=== PATIENT | female | born 1955 | race Caucasian/White ===

== ENCOUNTER 2023-08-30 06:22 | Day surgery (SDC) | payer MEDICARE, SELFPAY ==
[2023-08-25 12:55] VITALS: BMI 28.5
[2023-08-25 15:37] VITALS: BMI 27.3
[2023-08-26 08:21] VITALS: BMI 28.5
--- NOTE | 2023-08-27 08:12 | MHC.SHP ---
Pre-Procedural Eval Section A Date of Service: 08/27/23 The patient is an INPATIENT: No Changes since office visit: No Cold of Flu in the past 2 weeks, No New Medical Problems, No Changes in Medication and No Patient answered all questions The History & Physical has been completed within 30 days and I have reviewed it.: Yes Section B Chief Complaint: Age-related nuclear cataract, left eye Allergies: Allergies Allergy/AdvReac Type Severity Reaction Status Date / Time No Known Allergies Allergy Verified 08/25/23 12:55 Plan Diagnosis/Plan: Unchanged I have reviewed the history and physical and performed a pertinent physical examination on my patient. No changes have occurred unless specified. Time Spent With Patient Time: Total time managing care of this patient today ____ minutes.
--- NOTE | 2023-08-27 08:47 | HO.ANESPROP2 ---
Documented by User: Cecilia Mccarthy NP 08/27/23 08:47 HPI - Anesthesia Eval Consult details Narrative: 68yo F fcr Left Cataract Extraction IOL Insertion Medically cleared No previous cataract on record PMFSH Past Medical History Medical History Elevated cholesterol Surgical History Surgical History (Updated 08/30/23 @ 08:02 by Elizabeth Foster MD) History of mandibular surgery S/P LASIK surgery Hx of appendectomy History of H/O colonoscopy Social History Social History Are you a primary career placement specialist to a significant other at home: No Do you presently have visiting nurse or other home services: No Patient Tobacco Use Status: Never used Tobacco Use of substances other than those prescribed or required for medical reasons: No Have you been hit, kicked, punched, or otherwise hurt by someone within the past year? If so, by whom?: No Are you DNR?: No Advance Directives: No Advance Directives Information Provided: Yes ( is primary contact) Advance Directives on File: No Recently lost weight without trying: No Nutrition Risks: No Nutritional Risk Poor oral hygiene: No (dental implant) Meds Allergies Allergy/AdvReac Type Severity Reaction Status Date / Time No Known Allergies Allergy Verified 08/30/23 06:51 Home Medications Medication Instructions Recorded Confirmed Last Taken Type atorvastatin 40 mg tablet 40 mg PO QAM 08/25/23 08/30/23 Unknown History coenzyme Q10 100 mg capsule (Co 100 mg PO DAILY 08/25/23 08/30/23 Unknown History Q-10) lactobacillus comb no.10 20 20,000 mmu cells PO DAILY 08/25/23 08/30/23 Unknown History billion cell capsule (Probiotic) red yeast rice 600 mg capsule 1,200 mg PO DAILY 08/25/23 08/30/23 Unknown History turmeric root extract 500 mg tablet 1,000 mg PO DAILY 08/25/23 08/30/23 Unknown History Exam Height,Weight and Vital Signs: Height 4 ft 11 in Weight 64 kg Assessment and Plan Assessment Anesthesia Assessment: Chart Reviewed Documented by User: Elizabeth Foster MD 08/30/23 08:02 [facility] Past Medical History Medical History Elevated cholesterol Family History Family history of problems with anesthesia: No Surgical History Surgical History (Updated 08/30/23 @ 08:02 by Elizabeth Foster MD) History of mandibular surgery S/P LASIK surgery Hx of appendectomy History of H/O colonoscopy History of Problems with Anesthesia: No Social History Social History Are you a primary career placement specialist to a significant other at home: No Do you presently have visiting nurse or other home services: No Patient Tobacco Use Status: Never used Tobacco Use of substances other than those prescribed or required for medical reasons: No Have you been hit, kicked, punched, or otherwise hurt by someone within the past year? If so, by whom?: No Are you DNR?: No Advance Directives: No Advance Directives Information Provided: Yes ( is primary contact) Advance Directives on File: No Recently lost weight without trying: No Nutrition Risks: No Nutritional Risk Poor oral hygiene: No (dental implant) Meds Allergies Allergy/AdvReac Type Severity Reaction Status Date / Time No Known Allergies Allergy Verified 08/30/23 06:51 Home Medications Medication Instructions Recorded Confirmed Last Taken Type atorvastatin 40 mg tablet 40 mg PO QAM 08/25/23 08/30/23 Unknown History coenzyme Q10 100 mg capsule (Co 100 mg PO DAILY 08/25/23 08/30/23 Unknown History Q-10) lactobacillus comb no.10 20 20,000 mmu cells PO DAILY 08/25/23 08/30/23 Unknown History billion cell capsule (Probiotic) red yeast rice 600 mg capsule 1,200 mg PO DAILY 08/25/23 08/30/23 Unknown History turmeric root extract 500 mg tablet 1,000 mg PO DAILY 08/25/23 08/30/23 Unknown History Exam Height,Weight and Vital Signs: Height 4 ft 11 in Weight 64 kg Vital Signs Temp Pulse Resp BP Pulse Ox O2 Del Method 08/30/23 07:05 97.6 F 69 16 147/81 H 98 Room Air Airway Mallampati Class: II TM Dist: >3cm Neck ROM: Full Loose/Missing/Broken Teeth: No (Denies broken or loose teeth) Heart: RRR Lungs: CTAB Assessment and Plan Assessment Anesthesia Assessment: Anesthesia Plan Discussed Final Anesthetic Review Family History of Problems with Anesthesia: No History of Problems with Anesthesia: No NPO: Yes ASA Class: II Final Preanesthetic Review: No Changes in Pt Med Stat, Meds/Allgs Chart Reviewed, Consent Obtained/Reviewed and Anes Risks/Benef Reviewed Patient Risk: Low Procedure Risk: Low Assessment/Block/Sedation in SS: Assess/Block/Sedation-SS Anesthetic Plan Anesthetic Plan: MAC: Disposition: Standard PACU
[2023-08-30 06:52] VITALS: BMI 28.2
[2023-08-30 07:05] VITALS: BP 147/81; PULSE 69; RESP 16; TEMP 36.4; O2SAT 98
[2023-08-30] MEDS: Tetracaine HCl/PF 0.5% Oph Sol 4 ML DROPS 1 DROP EYE-LEFT (07:09)
[2023-08-30] MEDS: Cyclopentolate 1 % Ophth Sol 2 ML DRPBTL 1 DROP EYE-LEFT ×3 (07:10→07:26)
[2023-08-30] MEDS: Tropicamide 1 % Ophth Sol 3 ML BTL 1 DROP EYE-LEFT ×3 (07:12→07:28)
[2023-08-30] MEDS: Ketorolac Tromethamine 0.5% Op 5 ML DROPS 1 DROP EYE-LEFT ×3 (07:14→07:30)
[2023-08-30] MEDS: Phenylephrine HCL 2.5% Oph SoL 2 ML BOTTLE 1 DROP EYE-LEFT ×3 (07:16→07:32)
[2023-08-30] MEDS: Lactated Ringers 500 ML 50 ML IV (07:18)
--- NOTE | 2023-08-30 08:21 | HO.PNOPHT ---
Ophthalmology Procedure Procedure Date of Service: 08/30/23 Ophthalmology Viscoelastic: Healon Duet Dual Pack Pro Ophthalmology Lenses: TECNIS ZXR00 (21.5) Procedure Notes: PREOPERATIVE DIAGNOSIS: Decreased visual acuity left eye secondary to cataract POSTOPERATIVE DIAGNOSIS: Same PROCEDURE: Left cataract extraction with multifocal intraocular lens insertion SURGEON: Javi Foster M.D. ANESTHESIA: Topical/MAC ESTIMATED BLOOD LOSS: None COMPLICATIONS: None After obtaining informed consent, the patient was brought to the operation room suite and placed in the supine position. After adequate sedation per anesthesia, topical drops of Tetracaine were given to the left eye. The eye was then prepped and draped in the usual sterile fashion. The operating room microscope was then positioned over the operative eye and a lid speculum placed. A paracentesis was created. Viscoelastic was then instilled into the anterior chamber. A three plane incision was then created temporally, utilizing a 2.85 mm keratome. Capsulotomy forceps were then utilized to create a circular tear capsulotomy. Hydrodissection and hydrodelineation were carried out until adequate mobilization of the nucleus occurred. Phacoemulsification was then utilized to remove the dense central nucleus followed by removal of the cortical material utilizing the automated aspiration irrigation unit. Viscoelastic was instilled into the posterior capsular bag followed by placement of a multifocal posterior chamber intraocular lens without difficulty. The residual Viscoelastic was then removed utilizing the automated IA machine. The wound was check and found to be watertight. The patient tolerated the procedure well and the lid speculum was removed. Intracameral injection of Vigamox 0.1 mL followed by a subtenon injection of Kenalog-40 0.2 mL were administered. The patient will be seen in the a.m.
[2023-08-30 08:47] VITALS: BP 137/62; PULSE 58; RESP 16; TEMP 36.3; O2SAT 99
== END 2023-08-30 09:00 | disposition home or self-care (01) ==
PROVIDERS: PCP Internal Medicine; Visit Provider Ophthalmology
PROC: (CPT 66984; principal; 2023-08-30 08:20)
DX: H25.12 Age-related nuclear cataract, left eye (principal); H54.7 Unspecified visual loss; Z83.511 Family history of glaucoma; H11.153 Pinguecula, bilateral; H43.393 Other vitreous opacities, bilateral; H17.9 Unspecified corneal scar and opacity; E78.00 Pure hypercholesterolemia, unspecified; Z79.899 Other long term (current) drug therapy; Z98.890 Other specified postprocedural states
CPT/HCPCS: 66984; J2250; J3010; J3301; V2788

== ENCOUNTER 2023-09-13 07:07 | Day surgery (SDC) | payer MEDICARE, SELFPAY ==
[2023-08-25 15:39] VITALS: BMI 784.3
[2023-08-26 08:21] VITALS: BMI 28.5
--- NOTE | 2023-09-10 07:44 | MHC.SHP ---
Pre-Procedural Eval Section A Date of Service: 09/10/23 The patient is an INPATIENT: No Changes since office visit: No Cold of Flu in the past 2 weeks, No New Medical Problems, No Changes in Medication and No Patient answered all questions The History & Physical has been completed within 30 days and I have reviewed it.: Yes Section B Chief Complaint: Age-related nuclear cataract, right eye Allergies: Allergies Allergy/AdvReac Type Severity Reaction Status Date / Time No Known Allergies Allergy Verified 08/30/23 06:51 Plan Diagnosis/Plan: Unchanged I have reviewed the history and physical and performed a pertinent physical examination on my patient. No changes have occurred unless specified. Time Spent With Patient Time: Total time managing care of this patient today ____ minutes.
--- NOTE | 2023-09-10 09:43 | P.CONAN_ITS ---
Documented by User: Cecilia Mccarthy NP 09/10/23 09:44 HPI - Anesthesia Eval Consult details Narrative: 68yo F for Right Cataract Extraction IOL Insertion Medically cleared s/p Left eye 08/30/23: Fent 48, Midaz 1 PMFSH Past Medical History Medical History Hx of cataract Elevated cholesterol Family History Family history of problems with anesthesia: No Surgical History Surgical History Hx of cataract removal with insertion of prosthetic lens History of mandibular surgery S/P LASIK surgery Hx of appendectomy History of H/O colonoscopy History of Problems with Anesthesia: No Social History Social History Are you a primary critical care paramedic to a significant other at home: No Do you presently have visiting nurse or other home services: No Patient Tobacco Use Status: Never used Tobacco Use of substances other than those prescribed or required for medical reasons: No Have you been hit, kicked, punched, or otherwise hurt by someone within the past year? If so, by whom?: No Are you DNR?: No Advance Directives: No Advance Directives Information Provided: Yes ( is primary contact) Advance Directives on File: No Recently lost weight without trying: No Eating poorly because of decreased appetite: No Nutrition Risks: No Nutritional Risk Poor oral hygiene: No (dental implant) Meds Allergies Allergy/AdvReac Type Severity Reaction Status Date / Time No Known Allergies Allergy Verified 09/13/23 07:20 Home Medications Medication Instructions Recorded Confirmed Last Taken Type atorvastatin 40 mg tablet 40 mg PO QAM 08/25/23 08/30/23 Unknown History coenzyme Q10 100 mg capsule (Co 100 mg PO DAILY 08/25/23 08/30/23 Unknown History Q-10) lactobacillus comb no.10 20 20,000 mmu cells PO DAILY 08/25/23 08/30/23 Unknown History billion cell capsule (Probiotic) red yeast rice 600 mg capsule 1,200 mg PO DAILY 08/25/23 08/30/23 Unknown History turmeric root extract 500 mg tablet 1,000 mg PO DAILY 08/25/23 08/30/23 Unknown History Exam Height,Weight and Vital Signs: Height 4 ft 11 in Weight 64 kg Assessment and Plan Assessment Anesthesia Assessment: Chart Reviewed Final Anesthetic Review Family History of Problems with Anesthesia: No History of Problems with Anesthesia: No Documented by User: Elizabeth Foster MD 09/13/23 08:19 PMFSH Past Medical History Medical History Hx of cataract Elevated cholesterol Surgical History Surgical History Hx of cataract removal with insertion of prosthetic lens History of mandibular surgery S/P LASIK surgery Hx of appendectomy History of H/O colonoscopy Social History Social History Are you a primary critical care paramedic to a significant other at home: No Do you presently have visiting nurse or other home services: No Patient Tobacco Use Status: Never used Tobacco Use of substances other than those prescribed or required for medical reasons: No Have you been hit, kicked, punched, or otherwise hurt by someone within the past year? If so, by whom?: No Are you DNR?: No Advance Directives: No Advance Directives Information Provided: Yes ( is primary contact) Advance Directives on File: No Recently lost weight without trying: No Eating poorly because of decreased appetite: No Nutrition Risks: No Nutritional Risk Poor oral hygiene: No (dental implant) Meds Allergies Allergy/AdvReac Type Severity Reaction Status Date / Time No Known Allergies Allergy Verified 09/13/23 07:20 Home Medications Medication Instructions Recorded Confirmed Last Taken Type atorvastatin 40 mg tablet 40 mg PO QAM 08/25/23 08/30/23 Unknown History coenzyme Q10 100 mg capsule (Co 100 mg PO DAILY 08/25/23 08/30/23 Unknown History Q-10) lactobacillus comb no.10 20 20,000 mmu cells PO DAILY 08/25/23 08/30/23 Unknown History billion cell capsule (Probiotic) red yeast rice 600 mg capsule 1,200 mg PO DAILY 08/25/23 08/30/23 Unknown History turmeric root extract 500 mg tablet 1,000 mg PO DAILY 08/25/23 08/30/23 Unknown History Exam Height,Weight and Vital Signs: Height 4 ft 11 in Weight 64 kg Vital Signs Temp Pulse Resp BP Pulse Ox O2 Del Method 09/13/23 07:56 97.9 F 63 18 146/79 H 97 Room Air Airway Mallampati Class: II TM Dist: >3cm Neck ROM: Full Loose/Missing/Broken Teeth: No (Denies broken, loose, missing teeth) Heart: RRR Lungs: CTAB Assessment and Plan Assessment Anesthesia Assessment: Anesthesia Plan Discussed Final Anesthetic Review NPO: Yes ASA Class: II Final Preanesthetic Review: No Changes in Pt Med Stat, Meds/Allgs Chart Reviewed, Consent Obtained/Reviewed and Anes Risks/Benef Reviewed Patient Risk: Low Procedure Risk: Low Assessment/Block/Sedation in SS: Assess/Block/Sedation-SS Anesthetic Plan Anesthetic Plan: MAC: Disposition: Standard PACU
[2023-09-13] MEDS: Ketorolac Tromethamine 0.5% Op 5 ML DROPS 1 DROP EYE-RIGHT ×3 (07:43→07:53)
[2023-09-13] MEDS: Tetracaine HCl/PF 0.5% Oph Sol 4 ML DROPS 1 DROP EYE-RIGHT (07:43)
[2023-09-13] MEDS: Lactated Ringers 500 ML 50 ML IV (07:43)
[2023-09-13] MEDS: Phenylephrine HCL 2.5% Oph SoL 2 ML BOTTLE 1 DROP EYE-RIGHT ×3 (07:43→07:53)
[2023-09-13] MEDS: Tropicamide 1 % Ophth Sol 3 ML BTL 1 DROP EYE-RIGHT ×3 (07:44→07:53)
[2023-09-13] MEDS: Cyclopentolate 1 % Ophth Sol 2 ML DRPBTL 1 DROP EYE-RIGHT ×3 (07:44→07:53)
[2023-09-13 07:56] VITALS: BP 146/79; PULSE 63; RESP 18; TEMP 36.6; O2SAT 97
--- NOTE | 2023-09-13 08:46 | P.PCNO_ITS ---
Ophthalmology Procedure Procedure Date of Service: 09/13/23 Ophthalmology Viscoelastic: Healon Duet Dual Pack Pro Ophthalmology Lenses: TECNIS ZXR00 (21.) Procedure Notes: PREOPERATIVE DIAGNOSIS: Decreased visual acuity right eye secondary to cataract POSTOPERATIVE DIAGNOSIS: Same PROCEDURE: Right cataract extraction with multifocal intraocular lens insertion SURGEON: Javi Foster M.D. ANESTHESIA: Topical/MAC ESTIMATED BLOOD LOSS: None COMPLICATIONS: None After obtaining informed consent, the patient was brought to the operating room suite and placed in the supine position. After adequate sedation per anesthesia, topical drops of Tetracaine were given to the right eye. The eye was then prepped and draped in the usual sterile fashion. The operating room microscope was then positioned over the operative eye and a lid speculum placed. A paracentesis was created. Viscoelastic was then instilled into the anterior chamber. A three plane incision was then created temporally, utilizing a 2.85 mm keratome. Capsulotomy forceps were then utilized to create a circular tear capsulotomy. Hydrodissection and hydrodelineation were carried out until adequate mobilization of the nucleus occurred. Phacoemulsification was then utilized to remove the dense central nuc leus followed by removal of the cortical material utilizing the automated aspiration irrigation unit. Viscoelastic was instilled into the posterior capsular bag followed by placement of a multifocal posterior chamber intraocular lens without difficulty. The residual Viscoelastic was then removed utilizing the automated IA machine. The wound was checked and found to be watertight. The patient tolerated the procedure well and the lid speculum was removed. Intracameral injection of Vigamox 0.1 mL followed by a subtenon injection of Kenalog-40 0.2 mL were administered. The patient will be seen in the a.m.
[2023-09-13 09:26] VITALS: BP 122/65; PULSE 62; RESP 18; TEMP 36.1; O2SAT 97
== END 2023-09-13 09:28 | disposition home or self-care (01) ==
PROVIDERS: PCP Internal Medicine; Visit Provider Ophthalmology
PROC: (CPT 66984; principal; 2023-09-13 09:10)
DX: H25.11 Age-related nuclear cataract, right eye (principal); H54.7 Unspecified visual loss; Z83.511 Family history of glaucoma; H18.413 Arcus senilis, bilateral; H43.393 Other vitreous opacities, bilateral; H11.153 Pinguecula, bilateral; E78.00 Pure hypercholesterolemia, unspecified; Z79.899 Other long term (current) drug therapy; H17.9 Unspecified corneal scar and opacity
CPT/HCPCS: 66984; J2250; J3010; J3301; V2788